=== PATIENT | female | born 1990 | race Caucasian/White ===

== ENCOUNTER 2020-06-12 13:16 | Emergency (ER) | payer MEDICAID, SELFPAY ==
[2020-06-12 13:19] VITALS: BP 126/89; PULSE 87; RESP 16; TEMP 36.5; O2SAT 100; BMI 33.7
[2020-06-12 13:21] VITALS: BP 126/89; PULSE 81; RESP 16; TEMP 36.5; O2SAT 100
--- NOTE | 2020-06-12 14:25 | RAD_ITS ---
STUDY: X-RAY CHEST REASON FOR EXAM: Female, 29 years old. PT C/O VOMITING, SOB, AND COUGH WITH SYMPTOMS STARTING 3 DAYS AGO TECHNIQUE: Single AP portable view of the chest. COMPARISON: None. FINDINGS: The lungs are clear and expanded. There is no demonstrated pleural abnormality. Normal size heart. Normal mediastinum and jaida. Normal visualized pulmonary arteries. Normal visualized aortic arch and descending thoracic aorta. Normal visualized thoracic spine. Normal visualized ribs, clavicles, and shoulders. There is no demonstrated abnormality of the visualized soft tissue structures of the upper abdomen. RAD/Chest 1 View (Portable) IMPRESSION: Normal x-ray examination of the chest. Electronically Signed: Enrique Butler, at 14:54 EST , Service support ,
[2020-06-12 14:35] VITALS: O2SAT 99
[2020-06-12] MEDS: Ondansetron ODT 4 MG Tablet PO (14:37)
--- NOTE | 2020-06-12 15:16 | ED.DCSUM_ITS ---
- ER Visit Summary Date of Service: 06/12/20 Chief Complaint: Cough History of Present Illness: The patient is a [address] Brock. She reports she has a cough began 3 days ago. Is productive green sputum without blood. She denies sick contacts. She does wear a mask. She denies fever or chills. She does complain of nasal congestion. Reports that she has mild shortness of breath and a diffuse headache. She denies myalgias. Physical Examination: Vitals: Stable. Afebrile. General: Well-nourished and well-developed. Head: Normocephalic atraumatic. Neck: Supple, no lymphadenopathy. No JVD. Nontender. Cardiovascular: Regular rate and rhythm. No murmurs. Respiratory: No respiratory distress. Clear to auscultation bilaterally. Abdominal: Soft, nontender, nondistended, normal bowel sounds. No guarding, rebound, or peritoneal signs. Back: Nontender. Extremities: Nontender, no edema. Skin: Normal color, no rash. Neurologic: Alert and oriented ?3. Cranial nerves II through XII are intact. Normal strength and sensation. Psych: Normal affect. Test Results: COVID-19 rapid antigen is negative. Chest x-ray shows no acute disease. Emergency Department Course and Treatment: Patient is resting comfortably without complaint. Treatment Plan: Had a prolonged discussion with patient that the Covid test is not perfect. She needs to quarantine until she is asymptomatic. Follow-up with her primary care physician in 10 to 14 days if not improving. Return to the emergency department for any worsening symptoms. Disposition: To home in improved and stable condition. Impression: 1. URI, possible COVID-19 infection. This note was generated with [employer] dictation software. It may contain incorrect words, spelling, and punctuation that were not noted in review of the chart prior to signing ED Disposition - Plan for ED Patient: Instructions: Coronavirus Disease 2019 (COVID-19): Overview Prescriptions: Ondansetron [Zofran Odt] 4 mg PO Q8H PRN PRN #10 tablet PRN Reason: Nausea Referrals: Kaushik Brown DO [Primary Care Provider] - 10-14 Days if not better
== END 2020-06-12 15:30 | disposition home or self-care (01) ==
PROVIDERS: Emergency Provider Emergency Medicine; PCP Family Medicine
DX: J06.9 Acute upper respiratory infection, unspecified (principal); Z20.828 Contact with and (suspected) exposure to other viral communicable diseases
CPT/HCPCS: 71045; 87426; 99283